=== PATIENT | female | born 1945 | race Caucasian/White ===

== ENCOUNTER → 2017-02-20 | Outpatient (CLI) | payer MEDICARE, BC ==
[~2017-02-20] MED LIST: ALTACE5 MG PO; AROMASIN25 MG PO; ASPIRIN EC81 MG PO; FENOFIBRATE134 MG PO; LASIX20 MG PO; NEURONTIN300 MG PO; PRAVACHOL80 MG PO; TENORMIN50 MG PO; THERAGRAN-M1 TAB PO
== END | disposition disaster alternative care site (69) ==
LOC: GBCOE 11:03
DX: Z12.31 Encounter for screening mammogram for malignant neoplasm of breast (principal); G58.9 Mononeuropathy, unspecified; M85.9 Disorder of bone density and structure, unspecified; Z85.3 Personal history of malignant neoplasm of breast
CPT/HCPCS: G0202

== ENCOUNTER → 2017-07-15 | Outpatient (CLI) | payer MEDICARE, BC | END | disposition disaster alternative care site (69) | LOC: GOPD 07-14 15:30 → GRAD 08:09 → GOPD 08:30 | DX: R10.9 Unspecified abdominal pain (principal); R91.8 Other nonspecific abnormal finding of lung field; K76.0 Fatty (change of) liver, not elsewhere classified; I70.90 Unspecified atherosclerosis | CPT/HCPCS: J2001; J7030; Q9967 ==